=== PATIENT | female | born 1960 ===

== ENCOUNTER 2025-08-04 08:00 | Day surgery (SDC) | payer OTHER ==
[2025-07-31 11:34] VITALS: BP 127/80
[~2025-08-04] VITALS: Ht 154.9 cm; Wt 66.2 kg
[2025-08-04] MEDS ORDERED: POVIDONE-IODINE 118 ML BOTT TOP ONE (09:53)
[2025-08-04] MEDS ORDERED: IBU600 MG PO (12:37)
== END 2025-08-04 15:45 | disposition home or self-care (01) ==
LOC: CIR.AMB 08:00
PROVIDERS: ATTEND Obstetrics & Gynecology Gynecology
DX: N87.0 Mild cervical dysplasia (principal)